=== PATIENT | male | born 1990 | race Caucasian/White ===

== ENCOUNTER 2016-07-19 18:35 | Emergency (ER) | payer SELFPAY ==
[~2016-07-19] VITALS: Ht 172.7 cm; Wt 80.6 kg
[~2016-07-19 18:35] MED LIST: BACT800T5 PO
[2016-07-19 18:48] VITALS: BP 115/61; PULSE 72; RESP 16; TEMP 98.4; O2SAT 98
[2016-07-19] MEDS ORDERED: NAPROXEN 500 MG TAB PO ONE (19:00)
[2016-07-19] MEDS ORDERED: TETANUS/DIPHTHERIA TOXOID ADULT 0.5 ML VIAL IM ONE (19:00)
--- NOTE | 2016-07-19 19:00 | PD ---
HPI Chief Complaint: Injury Time Seen by Provider: 18:59 Travel History International Travel<30 days: No Contact w/Intl Traveler<30days: No Traveled to known affect area: No History of Present Illness HPI Patient comes in complaining of puncture wound to his left heel that occurred shortly prior to arrival. Patient states he stepped on a nail that he did not see. Patient reports his tetanus shot is not up-to-date. He states he cleaned it with soap and water as well as rubbing alcohol prior to coming to the emergency department. Patient reports tenderness around the site of puncture without radiation. Pain is worse with walking. PFSH Past Medical History Medical History: Denies Significant Hx Diminished Hearing: No Social History Alcohol Use: Yes (FEW TIMES PER WEEK) Tobacco Use: Yes (2 CIGARS DAILY) Substance Use: No Allergies-Medications (Allergen,Severity, Reaction): Coded Allergies: Percocet (Verified Allergy, Severe, FACIAL SWELLING, 07/19/16) Reported Meds & Prescriptions Reported Meds & Active Scripts Active Cipro (Ciprofloxacin HCl) 250 Mg Tab 250 Mg PO BID 4 Days Keflex (Cephalexin) 500 Mg Cap 500 Mg PO Q12H 4 Days Review of Systems Except as stated in HPI: all other systems reviewed are Neg Physical Exam Narrative GENERAL: Well-developed, well nourished, in no acute distress, and non-ill appearing. SKIN: Warm and dry. Small puncture wound noted left heel medial aspect. No obvious foreign body noted. HEAD: Atraumatic. Normocephalic. EYES: Pupils equal and round. EOMI. No scleral icterus. No injection or drainage. ENT: No nasal bleeding or discharge. Mucous membranes pink and moist. NECK: Trachea midline. Supple. No nuclear rigidity. RESPIRATORY: No accessory muscle use. No respiratory distress. MUSCULOSKELETAL: No obvious deformities. No clubbing. No cyanosis. No edema. Full range of motion. NEUROLOGICAL: Awake and alert. No obvious cranial nerve deficits. Motor grossly within normal limits. Normal speech. PSYCHIATRIC: Appropriate mood and affect; insight and judgment normal. Data Data Last Documented VS Vital Signs Date Time Temp Pulse Resp B/P Pulse Ox O2 Delivery O2 Flow Rate FiO2 07/19/16 19:05 16 100 Room Air 07/19/16 18:48 98.4 72 115/61 Orders Tetanus/Diphtheria Tox Adult (Tetanus/Di (07/19/16 19:00) Foot, Heel Only (Bda5pir) (07/19/16 ) Naproxen (Naprosyn) (07/19/16 19:00) MDM Medical Decision Making Medical Screen Exam Complete: Yes Emergency Medical Condition: Yes Differential Diagnosis Puncture wound, retained foreign body, laceration, other Narrative Course Discussed the patient's potential side effects of antibiotics specifically weakening of tendons that could also cause a rupture on the medication. Patient was advised to not do any heavy lifting or strenuous running for at least 1-2 weeks after finishing antibiotics. Patient verbalizes understanding. There was no evidence to suggest foreign bodies. Visual, tactile and radiographic exams were unremarkable without evidence of foreign body at this time. There was no evidence of neurovascular injury. The patient had a normal distal vascular exam, and had full normal motor and sensory exams. There was no evidence of local joint space involvement at this time. The patient was irrigated with copious sterile normal saline. The patient was given signs and symptom warnings for infection, such as increasing pain, redness, swelling, associated heat, pus or fever. The patient was warned of possible unseen foreign body and instructed to return immediately if signs or symptoms develop. The patient was given instructions for timely follow up. The patient agreed with plan of care. Patient in no obvious distress upon re-evaluation. All pertinent Radiology result(s) discussed with patient. Patient was asked if they wanted to speak to my attending, which the patient did not wish to do at this time. Any questions/ concerns in reference to patient diagnosis/condition discussed and clarified prior to patient's discharge. Reinforced sheer importance of close follow up with patient's primary physician or primary care clinic. Instructed patient to return to ED immediately, if symptoms return/worsen. Pt showed understanding of above instructions. Further instructions and recommendations were detailed in discharge paperwork. Pt ambulated without difficulty out of ED at discharge. Procedures Procedure Narrative Verbal consent was obtained. Wound was cleaned and irrigated with copious amounts of normal saline. Sterile dressing was applied by nurse. There is no complications. Patient tolerated the procedure well. Diagnosis Primary Impression: Puncture wound Patient Instructions: General Instructions, Puncture Wound (ED) Additional Instructions: Follow-up with your primary care physician in 3-5 days reevaluation. Take all medication as prescribed. Use [id number] Tylenol and/or ibuprofen as needed for pain control. Follow instructions on the packaging. Return to the emergency department if symptoms get worse. Med/Other Pt SpecificInfo: Prescription(s) given Scripts Ciprofloxacin (Cipro)250 Mg [id number] Mg PO BID 4 Days Ref 0 Prov:Kristian Caceres MD 07/19/16 Cephalexin (Keflex)500 Mg [id number] Mg PO Q12H 4 Days Ref 0 Prov:Kristian Caceres MD 07/19/16 Disposition: 01 DISCHARGE HOME Condition: Stable Aftab Laguna Jul 19, 2016 19:00
[2016-07-19] MEDS ORDERED: CEPH-460 PO (19:30)
[2016-07-19] MEDS ORDERED: CIPR250T52 PO (19:30)
--- NOTE | 2016-07-19 19:35 | RADHPO ---
EXAM DATE/TIME: 07/19/2016 19:03 [facility] COMPARISON: No previous studies available for comparison. INDICATIONS : Patient stepped on a cinthia nail. Complains of pain. MEDICAL HISTORY : None. SURGICAL HISTORY : None. ENCOUNTER: Initial ACUITY: 1 day PAIN SCORE: 8/10 LOCATION: Left heel FINDINGS: Two view examination of the left heel demonstrates the trabecula to be intact with no evidence of fra cture. There is a normal calcaneal angle. The soft tissues are of normal thickness. CONCLUSION: No acute disease. Alexis Chatman MD on July 19, 2016 at 19:33 Board Certified Radiologist. This report was verified electronically.
== END 2016-07-19 19:49 | disposition home or self-care (01) ==
LOC: PHEFT 18:35
DX: S91.332A Puncture wound without foreign body, left foot, initial encounter (principal); F10.10 Alcohol abuse, uncomplicated; Z23 Encounter for immunization; Z72.0 Tobacco use; W45.0XXA Nail entering through skin, initial encounter; Y93.9 Activity, unspecified; Y92.9 Unspecified place or not applicable; Y99.9 Unspecified external cause status
CPT/HCPCS: 73650; 90471; 90714